=== PATIENT | male | born 1985 | race American Indian/Alaskan Native ===

== ENCOUNTER 2020-10-13 13:32 | Emergency (ER) | payer MEDICARE ==
--- NOTE | 2020-10-13 14:05 | Emergency Department Report ---
HPI - General Chief Complaint: Psych Time Seen by Provider: 10/13/20 13:36 - HPI HPI: This is a 35-year-old biological male, who presents to the emergency department via EMS from home for a mental health evaluation. The patient has a past medical history of HIV. They have a psychiatric history of bipolar disorder and schizophrenia. Apparently, per EMS, the patient started hormone shots about 1 month ago to transition to become a female. The patient has also been noncompliant with their psychiatric medications. The patient has been having increased erratic behavior over the past 3 days and multiple verbal altercations with family members. One of the family members called 911 this afternoon. The patient is seen talking to himself, yelling out, and is a poor historian secondary to his current psychiatric condition. ED Past Medical Hx - Past Medical History Previous Medical History?: Yes Hx HIV: Yes ED Review of Systems ROS: Stated complaint: BEHAVIORAL/PSYCH EPISODE Other details as noted in HPI Comment: Unobtainable due to pts medical conditions Physical Exam - Physical Exam Physical Exam: GENERAL: The patient is well-developed well-nourished. HENT: Normocephalic. Atraumatic. Patient has moist mucous membranes. EYES: Extraocular motions are intact. NECK: Supple. Trachea is midline. CHEST/LUNGS: Clear to auscultation. There is no respiratory distress noted. HEART/CARDIOVASCULAR: Regular. There is mild tachycardia. There is no murmur. ABDOMEN: Abdomen is soft, nontender. Patient has normal bowel sounds. SKIN: Skin is warm and dry. NEURO: The patient is awake, alert. No slurred speech. MUSCULOSKELETAL: There is no tenderness or deformity. There is no limitation range of motion. PSYCH: Patient is very agitated. Loud, pressured speech. Rambling, tangential thoughts. ED Medical Decision Making - Lab Data Result diagrams: 10/13/20 20:02 10/13/20 20:02 - Medical Decision Making This patient presents for a mental health evaluation. He appears to display acute psychosis with loud, rambling, pressured speech with tangential thoughts. Patient was given 10 mg of Geodon as treatment for his psychosis with some transient improvement. At one point the patient did leave some urine and the results are mostly unremarkable. However, we are still waiting for a blood draw to complete his medical clearance/evaluation. The patient will be given another dose of Geodon to treat the psychosis and the oncoming ER physician will follow the vitals and lab results and assess for clearance or disposition. 10/14/20 10:00 AM Patient's labs have been reviewed and are mostly unremarkable. UDS positive for marijuana. White blood cells seen in the urine but does not appear to be any significant urinary tract infection. The patient required more treatment/sedation overnight due to his acute psychosis. Vital signs reassuring throughout his ED course thus far. The patient is medically cleared for psychiatric placement. Critical Care Time: No Critical care attestation.: If time is entered above; I have spent that time in minutes in the direct care of this critically ill patient, excluding procedure time. ED Disposition Clinical Impression: Acute psychosis Disposition: [id number]/TX-65 PSY HOSP/PSY UNIT Is pt being admited?: No Condition: Stable Referrals: PRIMARY CARE [Primary Care Provider] - 3-5 Days Time of Disposition: 19:56
[2020-10-13] MEDS ORDERED: ZIPRASIDONE MESYLATE 20 MG VIAL IM ONE ×2 (15:17→19:53)
[2020-10-13 16:33] LABS: Bilirubin,Urine NEG (Negative); Blood,Urine NEG (Negative); Color,Urine Yellow (Yellow); Mucus,Urine FEW /HPF; Urobilinogen,Urine < 2.0 mg/dL (<2.0)
[2020-10-13 16:40] LABS: Amphetamine Screen,Urine Negative; Benzodiazepines Screen,Urine Negative; Cocaine Screen,Urine Negative; Methadone Screen,Urine Negative; Opiate Screen,Urine Negative
[2020-10-13 16:52] LABS: Cannabinoid Screen,Urine Positive
[2020-10-13] MEDS ORDERED: LORazepam 2 MG/ML VIAL IM ONE (19:56)
[2020-10-13 20:28] LABS: Basophils % (Auto) 0.4 % (0.0-1.8); Eosinophils # (Auto) 0.2 K/mm3 (0.0-0.4); Eosinophils % (Auto) 1.8 % (0.0-4.3); Hematocrit 38.5 % (35.5-45.6); Hemoglobin 13.3 gm/dl (11.8-15.2); Lymphocytes # (Auto) 2.7 K/mm3 (1.2-5.4); Lymphocytes % (Auto) 28.2 % (13.4-35.0); Mean Corpuscular HGB Conc 35 % (32-34); Mean Corpuscular Volume 87 fl (84-94); Monocytes # (Auto) 0.6 K/mm3 (0.0-0.8); Monocytes % (Auto) 6.4 % (0.0-7.3); Platelet Count 316 K/mm3 (140-440); Red Cell Distribution Width 12.8 % (13.2-15.2)
[2020-10-13 20:35] LABS: BUN/Creatinine Ratio 11; Blood Urea Nitrogen 9 mg/dL (9-20); Calcium 9.7 mg/dL (8.4-10.2); Hemolysis Index 6
[2020-10-13] MEDS ORDERED: WATER FOR INJ Sterile (PF) 10 ML ONE (21:11)
[2020-10-14] MEDS ORDERED: LORazepam 2 MG/ML VIAL IM ONE ×4 (02:59→22:22)
[2020-10-14] MEDS ORDERED: ZIPRASIDONE MESYLATE 20 MG VIAL IM ONE ×2 (02:59→09:54)
[2020-10-14] MEDS ORDERED: WATER FOR INJ Sterile (PF) 10 ML ONE (03:06)
--- NOTE | 2020-10-14 10:56 | Consultation ---
History of Present Illness - Reason for Consult Consult date: 10/14/20 Reason for consult: MHE Requesting physician: MACEY ENG - History of Present Psychiatric Illness Per ED Provider: This is a 35-year-old biological male, who presents to the emergency department via EMS from home for a mental health evaluation. The patient has a past medical history of HIV. They have a psychiatric history of bipolar disorder and schizophrenia. Apparently, per EMS, the patient started hormone shots about 1 month ago to transition to become a female. The patient has also been noncompliant with their psychiatric medications. The patient has been having increased erratic behavior over the past 3 days and multiple verbal altercations with family members. One of the family members called 911 this afternoon. The patient is seen talking to himself, yelling out, and is a poor historian secondary to his current psychiatric condition. PSYCH HPI Patient presented to the ED with chief complaint of abnormal bizarre behavior at home. Attempt was made to interview patient this a.m. but patient has just been recently medicated with urine Ativan, patient appears sedated and unable to cooperate and stay alert for this interview. Interview suspended PAST PSYCHIATRIC HISTORY Diagnoses:n/a Suicide attempts or Self-harm behavior: n/a Prior psychiatric hospitalizations: n/a Substance Abuse history: n/a Previous psychiatric medications tried: yes, in hpi Outpatient treatment: n/a PAST MEDICAL HISTORY:n/a Family Psychiatric History: None reported or documented SOCIAL HISTORY Marital Status:n/a Living Arrangements:n/a Employment Status:n/a Access to guns/weapons: n/a Education: n/a History of Abuse:n/a Legal History: n/a REVIEW OF SYSTEMS ROS cannot be reliably obtained from the patient due to his somenolence MENTAL STATUS EXAMINATION unable to conduct due to mental status Assessment and Plan - Psychiatric problem (1) Acute psychosis Current Visit: Yes Status: Acute Treatment Plan Start on Seroquel MEDICATIONS: Risks, benefits and alternatives of medications discussed with the patient, questions answered and consent obtained from patient. PSYCHOTHERAPY: Supportive psychotherapy provided MEDICAL: Per primary team DELIRIUM PRECAUTIONS: Please re-orient patient frequently, keep lights on during the day, and minimize benzodiazepines and opiates as these medications could worsen patient's confusion. MICROARRAY ANALYST: DISPOSITION: Do Recommend acute inpatient psychiatric hospitalization at this time. Will attemtp again tomorow. LEGAL STATUS: 1013 FOLLOW-UP: Will follow Thank you for the consult. Please contact with any questions and/or concerns. Medications and Allergies Allergies Allergy/AdvReac Type Severity Reaction Status Date / Time No Known Allergies Allergy Unverified 10/14/20 09:33 Mental Status Exam - Vital signs Last Vital Signs Temp 98.5 F 10/14/20 02:30 Pulse 103 H 10/13/20 20:18 Resp 16 10/14/20 02:30 BP 137/87 10/13/20 20:18 Pulse Ox 100 10/14/20 02:30 Results Result Diagrams: 10/13/20 20:02 10/13/20 20:02 Abnormal lab results 10/13/20 10/13/20 10/13/20 Range/Units 20:02 20:02 Unknown MCHC 35 H (32-34) % RDW 12.8 L (13.2-15.2) % Glucose 104 H (75-100) mg/dL Urine WBC (Auto) 9.0 H (0.0-6.0) /HPF All other labs normal. Assessment and Plan - Psychiatric problem (1) Acute psychosis Current Visit: Yes Status: Acute
[2020-10-14] MEDS ORDERED: QUEtiapine 25 MG TAB PO SCH (13:00)
[2020-10-14] MEDS: QUEtiapine 100 MG TAB PO SCH ×2 (15:08→22:42)
[2020-10-14] MEDS ORDERED: diphenhydrAMINE 50 MG/ML VIAL IV ONE (22:22)
[2020-10-14] MEDS ORDERED: HALOPERIDOL LACTATE 5 MG/1 ML INJ IM ONE (22:22)
[2020-10-15] MEDS ORDERED: HALOPERIDOL LACTATE 5 MG/1 ML INJ IM ONE ×3 (08:09→20:24)
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
[2020-10-15] MEDS ORDERED: LORazepam 2 MG/ML VIAL IV ONE (14:45)
[2020-10-15] MEDS ORDERED: LORazepam 2 MG/ML VIAL IM ONE ×2 (14:45→20:25)
[2020-10-16] MEDS: LITHIUM CARBONATE 300 MG CAP PO SCH ×4 (11:23→20:56)
[2020-10-16] MEDS ORDERED: VITAMIN A & D OINT 56.7 GM TP PRN (14:02)
[2020-10-17 08:01] VITALS: BP 131/83
[2020-10-17] MEDS: LITHIUM CARBONATE 300 MG CAP PO SCH ×2 (09:34→15:00)
== END 2020-10-17 18:15 ==
LOC: ED 13:32
DX: F23 Brief psychotic disorder (principal); Z21 Asymptomatic human immunodeficiency virus [HIV] infection status
CPT/HCPCS: 36415; 80048; 80178; 80307; 81001; 85025; 87086; 96372; 96374; 99285; A6250; J1200; J1630; J2060; J3486; 80320; G0480